=== PATIENT | female | born 1975 | race Caucasian/White ===

== ENCOUNTER 2016-12-19 23:19 | Emergency (ER) | payer OTHER ==
[~2016-12-19] VITALS: Ht 152.4 cm; Wt 77.3 kg
[2016-12-19 23:21] VITALS: Ht 152.4 cm; Wt 77.3 kg
[2016-12-19] MEDS ORDERED: SOD CHLORIDE 0.9% 500 ML IV STA (23:51)
[2016-12-20 00:19] LABS: BASOPHILS % 0.4 % (0.0-2.0); EOSINOPHILS # 0.1 10^3/ul (0.0-0.5); EOSINOPHILS % 1.5 % (0.0-7.0); HEMATOCRIT 37.7 % (37.0-47.0); LYMPHOCYTES # 2.3 10^3/ul (0.8-2.9); LYMPHOCYTES % 24.9 % (15.0-51.0); MEAN CORPUSCULAR HEMOGLOBIN 30.9 pg (29.0-33.0); MEAN CORPUSCULAR HGB CONC 34.5 g/dl (32.0-37.0); MEAN CORPUSCULAR VOLUME 89.5 fl (82.0-101.0); MEAN PLATELET VOLUME 9.8 fl (7.4-10.4); MONOCYTE # 0.6 10^3/ul (0.3-0.9); MONOCYTES % 6.5 % (0.0-11.0); NEUTROPHIL # 6.2 10^3/ul (1.6-7.5); NEUTROPHILS % 66.3 % (39.0-77.0); PLATELET COUNT 333 10^3/UL (140-415); RED BLOOD COUNT 4.21 10^6/ul (4.20-5.40); WHITE BLOOD COUNT 9.4 10^3/ul (4.8-10.8)
[2016-12-20 01:00] LABS: ALANINE AMINOTRANSFERASE 29 IU/L (13-69); ALBUMIN 3.9 g/dl (3.3-4.9); ALBUMIN/GLOBULIN RATIO 0.97; ALKALINE PHOSPHATASE 71 IU/L (42-121); ANION GAP 12 (8-16); ASPARTATE AMINO TRANSFERASE 18 IU/L (15-46); BILIRUBIN,INDIRECT 0.1 mg/dl (0-1.1); BILIRUBIN,TOTAL 0.1 mg/dl (0.2-1.3); BLOOD UREA NITROGEN 14 mg/dl (7-20); CALCIUM 9.3 mg/dl (8.4-10.2); CARBON DIOXIDE 21 mmol/L (21-31); CHLORIDE 109 mmol/L (97-110); CREATININE 0.68 mg/dl (0.44-1.00); GLUCOSE 107 mg/dl (70-220); POTASSIUM 3.6 mmol/L (3.5-5.1); SODIUM 138 mmol/L (135-144); TOTAL PROTEIN 7.9 g/dl (6.1-8.1)
[2016-12-20] MEDS ORDERED: METOPROLOL 5 MG INJ IV ONE (01:00)
[2016-12-20 01:08] LABS: B-TYPE NATRIURETIC PEPTIDE 31 PG/ML (0-125)
[2016-12-20 01:15] LABS: TROPONIN-I < 0.012 ng/ml (0.00-0.12)
[2016-12-20 01:32] VITALS: BP 127/80; PULSE 86; RESP 14
--- NOTE | 2016-12-20 01:37 | ERD ---
ER Documentation Chief Complaint Date/Time DATE: 12/20/16 TIME: 01:36 Chief Complaint BIBA RA 89,palpitations,took atenolol at home,hx SVT HPI 41-year-old female brought in by rescue to palpitations. Patient has history of SVT. She severely doubled dose of atenolol and so the palpitations of since resolved. She denies any fevers or chills. Denies any chest pain. Denies any nausea or vomiting. Denies any other current complaints. ROS All systems reviewed and are negative except as per history of present illness. Allergies Allergies: Coded Allergies: Sulfa (Sulfonamide Antibiotics) (Verified Allergy, Unknown, 11/20/15) iodine (Unverified Allergy, Unknown, 11/20/15) PMhx/Soc History of Surgery: Yes (appendectomy,adenoids removed) Hx Cardiac Disorders: Yes (SVT) Hx Psychiatric Problems: No Hx Miscellaneous Medical Probl: No Hx Alcohol Use: No Hx Substance Use: No Hx Tobacco Use: No Smoking Status: Never smoker Physical Exam Vitals Vital Signs Date Time Temp Pulse Resp B/P Pulse Ox O2 Delivery O2 Flow Rate FiO2 12/20/16 01:32 86 14 127/80 100 Room Air 86 12/20/16 00:52 89 16 119/65 96 Room Air 12/19/16 23:38 104 18 131/83 95 Room Air 12/19/16 23:37 108 18 131/83 98 Room Air 12/19/16 23:21 99.5 132 18 137/73 99 Physical Exam Const: [] Head: Atraumatic Eyes: Normal Conjunctiva ENT: Normal External Ears, Nose and Mouth. Neck: Full range of motion..~ No meningismus. Resp: Clear to auscultation bilaterally Cardio: Regular rate and rhythm, no murmurs Abd: Soft, non tender, non distended. Normal bowel sounds Skin: No petechiae or rashes Back: No midline or flank tenderness Ext: No cyanosis, or edema Neur: Awake and alert Psych: Normal Mood and Affect Result Diagram: 12/20/16 0004 12/20/16 0004 Results 24 hrs Laboratory Tests Test 12/20/16 00:04 White Blood Count 9.410^3/ul Red Blood Count 4.2110^6/ul Hemoglobin 13.0g/dl Hematocrit 37.7% Mean Corpuscular Volume 89.5fl Mean Corpuscular Hemoglobin 30.9pg Mean Corpuscular Hemoglobin Concent 34.5g/dl Red Cell Distribution Width 13.0% Platelet Count 86873^3/UL Mean Platelet Volume 9.8fl Neutrophils % 66.3% Lymphocytes % 24.9% Monocytes % 6.5% Eosinophils % 1.5% Basophils % 0.4% Nucleated Red Blood Cells % 0.0/100WBC Neutrophils # 6.210^3/ul Lymphocytes # 2.310^3/ul Monocytes # 0.610^3/ul Eosinophils # 0.110^3/ul Basophils # 0.010^3/ul Nucleated Red Blood Cells # 0.010^3/ul Sodium Level 138mmol/L Potassium Level 3.6mmol/L Chloride Level 109mmol/L Carbon Dioxide Level 21mmol/L Anion Gap 12 Blood Urea Nitrogen 14mg/dl Creatinine 0.68mg/dl Glucose Level 107mg/dl Calcium Level 9.3mg/dl Total Bilirubin 0.1mg/dl Direct Bilirubin 0.00mg/dl Indirect Bilirubin 0.1mg/dl Aspartate Amino Transf (AST/SGOT) 18IU/L Alanine Aminotransferase (ALT/SGPT) 29IU/L Alkaline Phosphatase 71IU/L Troponin I < 0.012ng/ml B-Type Natriuretic Peptide 31PG/ML Total Protein 7.9g/dl Albumin 3.9g/dl Globulin 4.00g/dl Albumin/Globulin Ratio 0.97 Current Medications Medications (Trade) Dose Ordered Sig/Dontae Route PRN Reason Start Time Stop Time Status Last Admin Dose Admin Sodium Chloride (NS) 500 ml @ 500 mls/hr Q1H STAT IV 12/19/16 23:51 12/20/16 00:50 DC 12/20/16 00:17 Metoprolol Tartrate (Lopressor) 5 mg ONCE ONCE IV 12/20/16 01:00 12/20/16 01:01 DC Procedures/[facility] EKG: Rate/Rhythm: [Normal Sinus Rhythm] QRS, ST, T-waves: [No changes consistent w/ acute ischemia] Impression: [No evidence of ischemia or arrhythmia] Chest X-ray 1V Interpreted by me: Soft Tissue: No acute abnormalities Bones: No acute abnormalities Mediastinum/Cardiac Silhouette/Lungs: [No acute abnormalities] Patient's thoracic symptoms have stabilized while in the department and are stable for outpatient follow up. Exam and work up not consistent w/ ischemia, arrhythmia, PE or dissection. Departure Diagnosis: Primary Impression: Palpitations Condition: Stable Patient Instructions: DEVYN LORENZANA Dec 20, 2016 01:37
[2016-12-20 01:38] LABS: ADD UMIC YES; UR ASCORBIC ACID NEGATIVE (NEGATIVE); UR BACTERIA FEW /HPF (NONE SEEN); UR BILIRUBIN (Dip) NEGATIVE (NEGATIVE); UR BLOOD (Dip) 1+ mg/dL (NEGATIVE); UR CLARITY CLEAR (CLEAR); UR COLOR STRAW (YELLOW); UR GLUCOSE (Dip) NEGATIVE (NEGATIVE); UR KETONES (Dip) NEGATIVE (NEGATIVE); UR LEUKOCYTE ESTERASE (Dip) NEGATIVE Leu/ul (NEGATIVE); UR NITRITE (Dip) NEGATIVE (NEGATIVE); UR RBC 1 /HPF (0-5); UR SPECIFIC GRAVITY (Dip) 1.003 (1.003-1.030); UR SQUAMOUS EPITHELIAL CELL FEW /HPF (FEW); UR TOTAL PROTEIN (Dip) NEGATIVE (NEGATIVE); UR UROBILINOGEN (Dip) NEGATIVE (NEGATIVE)
--- NOTE | 2016-12-20 03:49 | RADRPT ---
PROCEDURE: CHEST - 1 VIEW CLINICAL INDICATION: 41-year-old female with chest pain. TECHNIQUE: A single frontal AP semi-erect portable view of the chest was performed. The images we re reviewed on a PACS workstation. COMPARISON: Chest x-ray November 20, 2015. FINDINGS: The cardiomediastinal silhouette has a normal appearance. There is no evidence for an infiltrate. There is no evidence for congestive heart failure. There is no evidence for pneumothorax. The osseou s structures are intact. IMPRESSION: No evidence for active cardiopulmonary disease. .Jemal Palma MD, Date Time Electronically viewed and signed by .Jemal Palma MD, on 12/20/2016 03:49 .M/
== END 2016-12-20 01:41 | disposition home or self-care (01) ==
LOC: E/R 23:19
DX: R00.2 Palpitations (principal); R40.2142 Coma scale, eyes open, spontaneous, at arrival to emergency department; R40.2252 Coma scale, best verbal response, oriented, at arrival to emergency department; R40.2362 Coma scale, best motor response, obeys commands, at arrival to emergency department; R06.02 Shortness of breath
CPT/HCPCS: 36415; 71010; 80053; 81001; 83880; 84484; 85025; 93005; 96374; 99285; J7040

== ENCOUNTER 2018-06-07 10:06 | Observation (INO) | payer OTHER ==
[~2018-06-07] VITALS: Ht 152.4 cm; Wt 78.8 kg
[2018-06-07] MEDS ORDERED: ASPIRIN 325 MG TAB PO STA (10:50)
[2018-06-07] MEDS ORDERED: ONDANSETRON 4 MG INJ IV STA (10:50)
[2018-06-07] MEDS ORDERED: morphine 2 MG INJ IV STA (10:50)
[2018-06-07] MEDS ORDERED: SOD CHLORIDE 0.9% 1,000 ML IV STA (10:50)
[2018-06-07] MEDS ORDERED: ATEN-51 PO (11:06)
[2018-06-07] MEDS ORDERED: ACETAMINOPHEN 500 MG TAB PO STA (11:15)
[2018-06-07] MEDS ORDERED: SOD CHLORIDE 0.9% 100 ML ONE (12:21)
[2018-06-07] MEDS ORDERED: IOHEXOL 100 ML ONE (12:21)
[2018-06-07] MEDS ORDERED: ACETAMINOPHEN 325 MG TAB PO PRN (14:00)
[2018-06-07] MEDS ORDERED: ONDANSETRON 4 MG INJ IV PRN ×2 (14:00→16:00)
[2018-06-07 15:49] VITALS: BP 129/82; PULSE 75; RESP 18
[2018-06-07 16:00] VITALS: PULSE 67
[2018-06-07] MEDS ORDERED: NITROGLYCERIN (SL) 0.4 MG TAB SL PRN (16:00)
[2018-06-07] MEDS ORDERED: DOCUSATE SODIUM 100 MG CAP PO PRN (16:00)
[2018-06-07] MEDS ORDERED: morphine 2 MG INJ IV PRN (16:00)
[2018-06-07] MEDS ORDERED: ZOLPIDEM 5 MG TAB PO PRN (16:00)
[2018-06-07] MEDS ORDERED: NACL 0.9% 3 ML SYG IV SCH (16:00)
[2018-06-07] MEDS ORDERED: HYDROCODONE/APAP (5/325) TAB PO PRN (16:00)
--- NOTE | 2018-06-07 17:12 | HP ---
Date/Time of Note Date/Time of Note DATE: 06/07/18 TIME: 17:05 Assessment/Plan VTE Prophylaxis Pharmacological prophylaxis: NA/contraindicated Pharm contraindication: low risk/ambulating Lines/Catheters IV Catheter Type (from Nrs): [facility] Assessment/Plan Hospital Course 1. Atypical chest pain and back pain Patient's only risk factor is a positive family history Symptoms are atypical and likely secondary to muscular pain in the chest and back, possible mild fibromyalgia Of the patient's pain began 6 months ago after starting statins but has stopped taking statins 4 months ago and hence pain should have resolved by now Patient had a stress test 4 years ago that was reportedly negative Patient states that SVTs do cause palpitations at times but that this current pain is different Cardiology consultation obtained, follow-up and 2D echo Rule out ACS with troponins Check A1c and lipid panel 2. SVT Patient was diagnosed with this for years ago and has been taking atenolol DC atenolol and changed to Coreg as patient reports episodes of bradycardia with atenolol Cardiology consultation obtained 3. Obesity Patient is currently on a diet for the past several months and has been losing weight Prophylaxis: Ambulation Result Diagram: 06/07/18 1059 06/07/18 1340 Results 24hrs Laboratory Tests Test 06/07/18 10:58 06/07/18 10:59 06/07/18 13:40 POC Beta HCG, Qualitative NEGATIVE White Blood Count 6.8 # Red Blood Count 4.48 Hemoglobin 13.1 Hematocrit 40.2 Mean Corpuscular Volume 89.7 Mean Corpuscular Hemoglobin 29.2 Mean Corpuscular 32.6 Hemoglobin Concent Red Cell Distribution Width 12.8 Platelet Count 230 # Mean Platelet Volume 11.3 H Immature Granulocytes % 0.400 Neutrophils % 69.2 Lymphocytes % 22.9 Monocytes % 5.9 Eosinophils % 0.9 Basophils % 0.7 Nucleated Red Blood Cells % 0.0 Immature Granulocytes # 0.030 Neutrophils # 4.7 Lymphocytes # 1.6 Monocytes # 0.4 Eosinophils # 0.1 Basophils # 0.1 Nucleated Red Blood Cells # 0.0 Urine Color YELLOW Urine Clarity SLIGHTLY CLOUDY A Urine pH 5.0 Urine Specific [place] 1.006 Urine Ketones NEGATIVE Urine Nitrite NEGATIVE Urine Bilirubin NEGATIVE Urine Urobilinogen NEGATIVE Urine Leukocyte Esterase 1+ H Urine Microscopic RBC 2 Urine Microscopic WBC 4 Urine Squamous FEW Epithelial Cells Urine Bacteria FEW A Urine Mucus FEW A Urine Hemoglobin 1+ H Urine Glucose NEGATIVE Urine Total Protein NEGATIVE Prothrombin Time 12.2 Prothrombin Time Ratio 1.0 INR International 0.89 Normalized Ratio Activated Partial Thromboplast Pending Time Sodium Level 142 Potassium Level 4.6 Chloride Level 107 Carbon Dioxide Level 22 Anion Gap 13 Blood Urea Nitrogen 10 Creatinine 0.57 Est Glomerular Filtrat > 60 Rate mL/min Glucose Level 105 Calcium Level 9.8 Total Bilirubin 0.5 Direct Bilirubin 0.00 Indirect Bilirubin 0.5 Aspartate Amino 22 Transf (AST/SGOT) Alanine 18 Aminotransferase (ALT/SGPT) Alkaline Phosphatase 64 Creatine Kinase 58 Creatine Kinase Index 0.4 Creatinine Kinase MB (Mass) < 0.22 Troponin I < 0.012 B-Type Natriuretic Peptide 36 Total Protein 8.1 Albumin 4.7 Globulin 3.40 H Albumin/Globulin Ratio 1.38 HPI/ROS Admit Date/Time Admit Date/Time Jun 07, 2018 at 13:48 Hx of Present Illness Patient is a 42-year-old female with a reported history of SVTs on atenolol, myalgias secondary to statin which was initiated 6 months ago. Patient presents with chest pain as well as back pain with the past 2 days. Patient began having diffuse body pains 6 months ago after starting statins and discontinued statins 4 months ago. Since then majority of her muscle pain has resolved but she does have persistent chest and back pain which was exacerbated over the past 2 days. Patient did have a stress test in outside hospital 4 years ago which was apparently negative but was diagnosed with SVT at that time and placed on atenolol. Patient does state that at times while taking atenolol she does become bradycardic. Patient denies any depression, anxiety or psychological distress. Patient denies any shortness of breath,, patient does report nausea over the past 2 days but denies any emesis, patient has chronic constipation and has no new changes in her bowel habits. Of note patient has an on a 1500- calorie diet for the past several months and has lost 10 pounds. Patient has no other complaints at this time. ROS Constitutional: no complaints, improved Eyes: no complaints ENT: no complaints Respiratory: no complaints Cardiovascular: chest pain Gastrointestinal: nausea Genitourinary: no complaints Musculoskeletal: back pain Skin: no complaints Neurologic: no complaints Endocrine: no complaints Lymphatic: no complaints Psychological: no complaints, nl mood/affect Immunologic: no complaints PMH/Family/Social Past Medical History SVT Medications Current Medications Ondansetron HCl (Zofran Inj) 4 mg ER BRIDGE PRN IV NAUSEA/VOMITING; Start 06/07/18 at 14:00; Stop 06/08/18 at 13:59 Acetaminophen (Tylenol Tab) 650 mg ER BRIDGE PRN PO .MILD PAIN 1-3 OR TEMP; Start 06/07/18 at 14:00; Stop 06/08/18 at 13:59 Aspirin (Aspirin) 81 mg DAILY PO ; Start 06/09/18 at 09:00 Nitroglycerin (Nitroglycerin (Sl Tab) 0.4 Mg) 1 tab Q5M PRN SL CHEST PAIN; Start 06/07/18 at 16:00 IV Flush (NS 3 ml) 3 ml PER PROTOCOL IV ; Start 06/07/18 at 16:00 Ondansetron HCl (Zofran Inj) 4 mg Q6H PRN IV NAUSEA/VOMITING; Start 06/07/18 at 16:00 Acetaminophen (Tylenol Tab) 650 mg Q6H PRN PO .PAIN 1-3 OR TEMP; Start 06/07/18 at 16:00 Acetaminophen/ Hydrocodone Bitart ([address] ([address])) 1 tab Q6H PRN PO .MOD PAIN 4- 6; Start 06/07/18 at 16:00 Morphine Sulfate (morphine) 2 mg Q4H PRN IV .SEVERE PAIN 7-10; Start 06/07/18 at 16:00 Docusate Sodium (Colace) 100 mg Q12H PRN PO .CONSTIPATION; Start 06/07/18 at 16:00 Zolpidem Tartrate (Ambien) 5 mg QHS PRN PO .INSOMNIA; Start 06/07/18 at 16:00 Enoxaparin Sodium (Lovenox) 40 mg DAILY SC ; Start 06/08/18 at 09:00 Atenolol (Tenormin) 25 mg DAILY PO ; Start 06/08/18 at 09:00 Coded Allergies: Sulfa (Sulfonamide Antibiotics) (Verified Allergy, Unknown, 06/07/18) iodine (Unverified Allergy, Unknown, 06/07/18) Past Surgical History Past Surgical Hx: no surgical history Family History Significant Family History: heart disease (Father with first [place] at 38 and of heart disease in his early 50s) Social History Alcohol Use: rarely Smoking Status: Never smoker Drug Use: none Exam/Review of Systems Vital Signs Vitals Vital Signs Date Temp Pulse Resp B/P (MAP) Pulse Ox O2 O2 Flow FiO2 Time Delivery Rate 06/07/18 67 16:00 06/07/18 98.2 18 129/82 99 Room Air 15:49 (98) Exam Constitutional: alert, oriented Respiratory: clear to auscultation Cardiovascular: regular rate and rhythm Gastrointestinal: soft; No distended Musculoskeletal: nl extremities to inspection, other (Tenderness to palpation in the chest and back) KEKE MASON Jun 07, 2018 17:12
[2018-06-07 19:44] VITALS: BP 102/64; PULSE 81; RESP 18
[2018-06-07 20:04] VITALS: PULSE 71
[2018-06-07 20:30] VITALS: BP 128/78; PULSE 79; PULSE 86; RESP 16
[2018-06-07 22:19] VITALS: Ht 152.4 cm; Wt 78.8 kg
[2018-06-08] VITALS (10 sets, daily range): BP systolic 100–117; BP diastolic 56–64; PULSE 70–102; RESP 14–15
[2018-06-08] MEDS: ACETAMINOPHEN 325 MG TAB PO PRN ×2 (06:53→16:06)
--- NOTE | 2018-06-08 07:11 | ERD ---
ER Documentation Chief Complaint Chief Complaint chest pain x3 days described as "pressure and discomfort" HPI This is a very pleasant 42-year-old female with a past medical history of hypercholesteremia however stopped taking statins as this resolved and has a remote history of SVT for years ago on atenolol. The patient presents to the emergency department she states she is been having intermittent chest pain for roughly 6 months but this progressively worsened 3 days prior to arrival. She described it as a pressure-like sensation. She did state that radiated to her back. She denied associated symptoms of nausea vomiting or diaphoresis. The patient has a history of tobacco use but quit several years ago. She states she has a strong family history of coronary artery disease as her father had a myocardial infarction at 38 years of age. She has no associated symptoms of shortness of breath. She said no fevers no shaking or chills. She states that the chest pressure has been intermittent. Will last for roughly 10-20 minutes and then resolved. There is no alleviating or exacerbating factors to the chest pressure. ROS All systems reviewed and are negative except as per history of present illness. Medications Home Meds Reported Medications Atenolol* (Atenolol*) 25 Mg Tablet, 25 MG PO DAILY, #30 TAB 06/07/18 Allergies Allergies: Coded Allergies: Sulfa (Sulfonamide Antibiotics) (Verified Allergy, Unknown, 06/07/18) iodine (Unverified Allergy, Unknown, 06/07/18) PMhx/Soc History of Surgery: Yes (appendectomy) Anesthesia Reaction: No Hx Neurological Disorder: No Hx Respiratory Disorders: No Hx Cardiac Disorders: Yes (svt) Hx Psychiatric Problems: No Hx Miscellaneous Medical Probl: No Hx Alcohol Use: No Hx Substance Use: No Hx Tobacco Use: No Smoking Status: Never smoker Physical Exam Vitals Vital Signs Date Temp Pulse Resp B/P (MAP) Pulse Ox O2 O2 Flow FiO2 Time Delivery Rate 06/07/18 97.8 81 20 150/73 100 10:07 (98) Physical Exam Constitutional:Well-developed. Well-nourished. HEENT:Normocephalic. Atraumatic.Pupils were equal round reactive to light. Moist mucous membranes.No tonsillar exudates. Neck: No nuchal rigidity. No lymphadenopathy. No posterior cervical spine ten derness or step-offs. Respiratory: Not using accessory muscles of respiration.Lungs were clear to au scultation bilaterally. No rhonchi. No rales. No wheezing. Cardiovascular: Regular rate regular rhythm.No murmurs. No rubs were appreciated.S1, S2 normal. Distal pulses are palpable 2+ bilaterally. GI: Abdomen was soft. Nontender. Non Distended. No pulsatile abdominal masses or bruits. No rebound. No guarding. Bowel sounds were present and normal. Muscle skeletal: Full range of motion of both the upper and lower extremities bilaterally.Normal muscle tone.No assymetrical calf tenderness or swelling. Skin: No petechia, no purpura. No lesions on the palms or the soles of the feet. No maculopapular rash. NEURO: Patient was alert, awake, orientated x3.No facial droop. Gait observed and normal with no ataxia.Speech had regular rate and rhythm. No focal neurological deficits. Result Diagram: 06/08/18 0506 06/08/18 0506 Results 24 hrs Laboratory Tests Test 06/07/18 10:58 06/07/18 10:59 06/07/18 13:40 POC Beta HCG, Qualitative NEGATIVE White Blood Count 6.8 10^3/ul Red Blood Count 4.48 10^6/ul Hemoglobin 13.1 g/dl Hematocrit 40.2 % Mean Corpuscular Volume 89.7 fl Mean Corpuscular Hemoglobin 29.2 pg Mean Corpuscular 32.6 g/dl Hemoglobin Concent Red Cell Distribution Width 12.8 % Platelet Count 230 10^3/UL Mean Platelet Volume 11.3 fl Immature Granulocytes % 0.400 % Neutrophils % 69.2 % Lymphocytes % 22.9 % Monocytes % 5.9 % Eosinophils % 0.9 % Basophils % 0.7 % Nucleated Red Blood Cells % 0.0 /100WBC Immature Granulocytes # 0.030 10^3/ul Neutrophils # 4.7 10^3/ul Lymphocytes # 1.6 10^3/ul Monocytes # 0.4 10^3/ul Eosinophils # 0.1 10^3/ul Basophils # 0.1 10^3/ul Nucleated Red Blood Cells # 0.0 10^3/ul Urine Color YELLOW Urine Clarity SLIGHTLY CLOUDY Urine pH 5.0 Urine Specific [place] 1.006 Urine Ketones NEGATIVE mg/dL Urine Nitrite NEGATIVE mg/dL Urine Bilirubin NEGATIVE mg/dL Urine Urobilinogen NEGATIVE mg/dL Urine Leukocyte Esterase 1+ Jeanine/ul Urine Microscopic RBC 2 /HPF Urine Microscopic WBC 4 /HPF Urine Squamous Epithelial Cells FEW /HPF Urine Bacteria FEW /HPF Urine Mucus FEW /HPF Urine Hemoglobin 1+ mg/dL Urine Glucose NEGATIVE mg/dL Urine Total Protein NEGATIVE mg/dl Prothrombin Time 12.2 Sec Prothrombin Time Ratio 1.0 INR International 0.89 Normalized Ratio Activated Partial Thromboplast 28.9 Sec Time Sodium Level 142 mmol/L Potassium Level 4.6 mmol/L Chloride Level 107 mmol/L Carbon Dioxide Level 22 mmol/L Anion Gap 13 Blood Urea Nitrogen 10 mg/dl Creatinine 0.57 mg/dl Est Glomerular Filtrat > 60 mL/min Rate mL/min Glucose Level 105 mg/dl Calcium Level 9.8 mg/dl Total Bilirubin 0.5 mg/dl Direct Bilirubin 0.00 mg/dl Indirect Bilirubin 0.5 mg/dl Aspartate Amino 22 IU/L Transf (AST/SGOT) Alanine 18 IU/L Aminotransferase (ALT/SGPT) Alkaline Phosphatase 64 IU/L Creatine Kinase 58 IU/L Creatine Kinase Index 0.4 Creatinine Kinase MB (Mass) < 0.22 ng/ml Troponin I < 0.012 ng/ml B-Type Natriuretic Peptide 36 PG/ML Total Protein 8.1 g/dl Albumin 4.7 g/dl Globulin 3.40 g/dl Albumin/Globulin Ratio 1.38 Current Medications Medications Dose Sig/Dontae Start Time Status Last (Trade) Ordered Route PRN Stop Time Admin Dose Reason Admin Sodium 1,000 ml @ Q1H STAT 06/07/18 DC Chloride 1,000 mls/hr IV 10:50 06/07/18 11:49 Aspirin 325 mg ONCE STAT 06/07/18 DC 06/07/18 (Aspirin) PO 10:50 11:17 06/07/18 10:51 Morphine 2 mg ONCE STAT 06/07/18 DC Sulfate IV 10:50 (morphine) 06/07/18 10:51 Ondansetron 4 mg ONCE STAT 06/07/18 DC HCl (Zofran IV 10:50 Inj) 06/07/18 10:51 1,000 mg ONCE STAT 06/07/18 DC 06/07/18 Acetaminophen PO 11:15 11:31 (Tylenol 06/07/18 11:17 Tab) Sodium 100 ml @ ud [facility] 06/07/18 DC Chloride ONCE .ROUTE 12:21 06/07/18 12:22 Iohexol 100 ml @ [facility] 06/07/18 DC ONCE .ROUTE 12:21 06/07/18 12:22 Procedures/MDM The patient presented to the emergency department with chest pain. My clinical evaluation and workup was to distinguish minor causes of chest pain from acute life threatening conditions such as myocardial infarction, pulmonary embolism, aortic dissection, esophageal rupture, cardiac tamponade. The patient was placed on a personnel monitor and continuous pulse oximetry. IV access established by nursing staff. The patient received 325 mg of aspirin. The patient had a chest pain that did radiate to the back of I did feel is necessary to obtain a CT scan of the patient's chest to rule out for any aortic dissection. However the patient has a severe anaphylactic allergy to iodine and therefore no IV contrast was given. CT scan of the chest without contrast did not show any signs of an aortic aneurysm or other severe life-threatening etiology. 12 Lead EKG tracing ordered and reviewed by myself showed: Normal sinus rhythm of 73 bpm and no arrhythmia. MN interval normal. QRS duration normal. No ST segment elevation No ST segment depression. No changes consistent with acute ischemia. Given the patient's strong family history of cardiac risk factors I did feel is necessary for the patient to be admitted for serial twelve-lead EKG tracings and cardiac set of enzymes. The patient will be admitted to the hospitalist for observation to the telemetry service in serious condition. The patient was not given nitroglycerin as her chest pain had resolved after aspirin. Departure Diagnosis: Primary Impression: Chest pain Chest pain type: unspecified Qualified Codes: R07.9 - Chest pain, unspecified Condition: Serious REGGIE GREENE MD Jun 08, 2018 07:11
[2018-06-08] MEDS ORDERED: ATENOLOL 25 MG TAB PO SCH (09:00)
[2018-06-08] MEDS ORDERED: ENOXAPARIN 40 MG/0.4 ML SYG SC SCH (09:00)
[2018-06-08] MEDS ORDERED: ASPIRIN 81 MG TAB ONE (09:16)
--- NOTE | 2018-06-08 12:13 | CONS ---
Assessment/Plan Assessment/Plan Hospital Course (Demo Recall) 1. Chest pain: Rule out ACS 2. History of SVT currently stable 3. History of fibromyalgia 4. Obesity Recommendations: Continue with beta-hany. Echocardiogram is pending We will schedule for Sola S are significant obstructive coronary artery disease Thank you for his referral. We will continue to follow along with you SOMMER LYNN MD [facility] Consultation Date/Type/Reason Admit Date/Time Jun 07, 2018 at 13:48 Date of Consultation: Jun 08, 2018 Type of Consult Cardiology Reason for Consultation chest pain Requesting Provider: KEKE CONTRERAS Date/Time of Note DATE: 06/08/18 TIME: 12:08 Hx of Present Illness Interventional cardiology consultation note Chief complaint: chest pain Reason for consult: chest pain History of present illness: Thank you for this referral. History was obtained from the patient discussion with her family and discussion with the physicians include Dr. Contreras This is a pleasant 42-year-old female with history of SVT on atenolol at home, who came to emergency room with increasing and worsening chest pain. Patient has had chest pain anteriorly in the left-sided over the past 6 months. It is not related to exertion for the last 5-10 minutes at a time. It is sharp. She has noted more dyspnea on exertion lately. She has been admitted and ruled out for myocardial infarction. Allergies: Sulfa drugs and iodine Medications were reviewed as per medical reconciliation sheet Family history: Father with NM at age 38 Social history: Does not smoke or drink Past medical history: SVT, possible fibromyalgia Review of system: Patient denies all others except for above-mentioned Past Medical History Home Meds Reported Medications Atenolol* (Atenolol*) 25 Mg Tablet, 25 MG PO DAILY, #30 TAB 06/07/18 Medications Current Medications Aspirin (Aspirin) 81 mg DAILY PO ; Start 06/09/18 at 09:00 Nitroglycerin (Nitroglycerin (Sl Tab) 0.4 Mg) 1 tab Q5M PRN SL CHEST PAIN; Start 06/07/18 at 16:00 IV Flush (NS 3 ml) 3 ml PER PROTOCOL IV ; Start 06/07/18 at 16:00 Ondansetron HCl (Zofran Inj) 4 mg Q6H PRN IV NAUSEA/VOMITING; Start 06/07/18 at 16:00 Acetaminophen (Tylenol Tab) 650 mg Q6H PRN PO .PAIN 1-3 OR TEMP Last administered on 06/08/18at 06:53; Admin Dose 650 MG; Start 06/07/18 at 16:00 Acetaminophen/ Hydrocodone Bitart ([place] (5/325)) 1 tab Q6H PRN PO .MOD PAIN 4- 6; Start 06/07/18 at 16:00 Morphine Sulfate (morphine) 2 mg Q4H PRN IV .SEVERE PAIN 7-10; Start 06/07/18 at 16:00 Docusate Sodium (Colace) 100 mg Q12H PRN PO .CONSTIPATION; Start 06/07/18 at 16:00 Zolpidem Tartrate (Ambien) 5 mg QHS PRN PO .INSOMNIA; Start 06/07/18 at 16:00 Enoxaparin Sodium (Lovenox) 40 mg DAILY SC Last administered on 06/08/18at 09:13; Admin Dose 40 MG; Start 06/08/18 at 09:00 Carvedilol (Coreg) 3.125 mg BID PO Last administered on 06/08/18at 09:03; Admin Dose 3.125 MG; Start 06/07/18 at 21:00 Allergies: Coded Allergies: Sulfa (Sulfonamide Antibiotics) (Verified Allergy, Unknown, 06/07/18) iodine (Unverified Allergy, Unknown, 06/07/18) Past Surgical History Past Surgical Hx: no surgical history Social History Alcohol Use: rarely Smoking Status: Never smoker Drug Use: none Exam/Review of Systems Vital Signs Vitals Vital Signs Date Temp Pulse Resp B/P (MAP) Pulse Ox O2 O2 Flow FiO2 Time Delivery Rate 06/08/18 75 12:02 06/08/18 98.5 14 103/58 93 Room Air 11:34 (73) Intake and Output 06/07/18 06/07/18 06/08/18 1515:00 23:00 07:00 IntakeIntake Total 360 ml 480 ml BalanceBalance 360 ml 480 ml Exam Exam General: no acute distress HEENT: NC/AT. pupils are equal. round. NECK: NO JVD. no stridor. CV: RRR. systolic murmur; no gallop or rubs. PULM: no wheezing or rhonchi. GI: SOFT, NT, ND, no rebound or guarding Extremity: trace B/L LE edema. no clubbing. neuro: awake and alert, OX3. Psych: calm and pleasant rectal: deferred EKG shows normal sinus rhythm with no evidence of ischemia Chest CT 1. No active pulmonary process. 2. Atherosclerotic disease is present. Labs Result Diagram: 06/08/18 0506 06/08/18 0506 Results 24hrs Laboratory Tests Test 06/07/18 13:40 06/08/18 05:06 Prothrombin Time 12.2 Prothrombin Time Ratio 1.0 INR International Normalized Ratio 0.89 Activated Partial Thromboplast Time 28.9 Sodium Level 142 142 Potassium Level 4.6 4.4 Chloride Level 107 110 Carbon Dioxide Level 22 22 Anion Gap 13 10 Blood Urea Nitrogen 10 10 Creatinine 0.57 0.64 Est Glomerular Filtrat Rate mL/min > 60 > 60 Glucose Level 105 95 Calcium Level 9.8 9.7 Total Bilirubin 0.5 Direct Bilirubin 0.00 Indirect Bilirubin 0.5 Aspartate Amino Transf (AST/SGOT) 22 Alanine Aminotransferase (ALT/SGPT) 18 Alkaline Phosphatase 64 Creatine Kinase 58 40 Creatine Kinase Index 0.4 0.6 Creatinine Kinase MB (Mass) < 0.22 < 0.22 Troponin I < 0.012 < 0.012 B-Type Natriuretic Peptide 36 Total Protein 8.1 Albumin 4.7 Globulin 3.40 H Albumin/Globulin Ratio 1.38 White Blood Count 7.6 Red Blood Count 4.41 Hemoglobin 12.8 Hematocrit 39.7 Mean Corpuscular Volume 90.0 Mean Corpuscular Hemoglobin 29.0 Mean Corpuscular Hemoglobin Concent 32.2 Red Cell Distribution Width 12.9 Platelet Count 385 # Mean Platelet Volume 10.2 Immature Granulocytes % 0.400 Neutrophils % 58.2 Lymphocytes % 32.0 Monocytes % 7.4 Eosinophils % 1.5 Basophils % 0.5 Nucleated Red Blood Cells % 0.0 Immature Granulocytes # 0.030 Neutrophils # 4.4 Lymphocytes # 2.4 Monocytes # 0.6 Eosinophils # 0.1 Basophils # 0.0 Nucleated Red Blood Cells # 0.0 Hemoglobin A1c 5.3 Phosphorus Level 4.7 Magnesium Level 2.0 Triglycerides Level 147 Cholesterol Level 227 H LDL Cholesterol, Calculated 157 HDL Cholesterol 41 Cholesterol/HDL Ratio 5.5 Medications Medications Current Medications Aspirin (Aspirin) 81 mg DAILY PO ; Start 06/09/18 at 09:00 Nitroglycerin (Nitroglycerin (Sl Tab) 0.4 Mg) 1 tab Q5M PRN SL CHEST PAIN; Start 06/07/18 at 16:00 IV Flush (NS 3 ml) 3 ml PER PROTOCOL IV ; Start 06/07/18 at 16:00 Ondansetron HCl (Zofran Inj) 4 mg Q6H PRN IV NAUSEA/VOMITING; Start 06/07/18 at 16:00 Acetaminophen (Tylenol Tab) 650 mg Q6H PRN PO .PAIN 1-3 OR TEMP Last administered on 06/08/18at 06:53; Admin Dose 650 MG; Start 06/07/18 at 16:00 Acetaminophen/ Hydrocodone Bitart ([place] (5/325)) 1 tab Q6H PRN PO .MOD PAIN 4- 6; Start 06/07/18 at 16:00 Morphine Sulfate (morphine) 2 mg Q4H PRN IV .SEVERE PAIN 7-10; Start 06/07/18 at 16:00 Docusate Sodium (Colace) 100 mg Q12H PRN PO .CONSTIPATION; Start 06/07/18 at 16:00 Zolpidem Tartrate (Ambien) 5 mg QHS PRN PO .INSOMNIA; Start 06/07/18 at 16:00 Enoxaparin Sodium (Lovenox) 40 mg DAILY SC Last administered on 06/08/18at 09:13; Admin Dose 40 MG; Start 06/08/18 at 09:00 Carvedilol (Coreg) 3.125 mg BID PO Last administered on 06/08/18at 09:03; Admin Dose 3.125 MG; Start 06/07/18 at 21:00 SOMMER LYNN MD Jun 08, 2018 12:13
--- NOTE | 2018-06-08 13:43 | PN ---
Date/Time of Note Date/Time of Note DATE: 06/08/18 TIME: 13:41 Assessment/Plan VTE Prophylaxis Risk score (from Nsg)>0 risk: 2 Pharmacological prophylaxis: NA/contraindicated Pharm contraindication: low risk/ambulating Lines/Catheters IV Catheter Type (from Nrsg): Saline Lock Assessment/Plan Hospital Course 1. Atypical chest pain and back pain Patient's only risk factor is a positive family history Symptoms are atypical and likely secondary to muscular pain in the chest and back, possible mild fibromyalgia Of the patient's pain began 6 months ago after starting statins but has stopped taking statins 4 months ago and hence pain should have resolved by now Patient had a stress test 4 years ago that was reportedly negative Patient states that SVTs do cause palpitations at times but that this current pain is different Cardiology consultation obtained, follow-up with 2D echo and stress test Troponins are negative A1c and lipids are within normal limits 2. SVT Patient was diagnosed with this for years ago and has been taking atenolol DC atenolol and changed to Coreg as patient reports episodes of bradycardia with atenolol Cardiology consultation appreciated 3. Obesity Patient is currently on a diet for the past several months and has been losing weight Prophylaxis: Ambulation DC planning: Follow-up on echo and stress test Result Diagram: 06/08/18 0506 06/08/18 0506 Results 24hrs Laboratory Tests Test 06/08/18 05:06 White Blood Count 7.6 Red Blood Count 4.41 Hemoglobin 12.8 Hematocrit 39.7 Mean Corpuscular Volume 90.0 Mean Corpuscular Hemoglobin 29.0 Mean Corpuscular Hemoglobin Concent 32.2 Red Cell Distribution Width 12.9 Platelet Count 385 # Mean Platelet Volume 10.2 Immature Granulocytes % 0.400 Neutrophils % 58.2 Lymphocytes % 32.0 Monocytes % 7.4 Eosinophils % 1.5 Basophils % 0.5 Nucleated Red Blood Cells % 0.0 Immature Granulocytes # 0.030 Neutrophils # 4.4 Lymphocytes # 2.4 Monocytes # 0.6 Eosinophils # 0.1 Basophils # 0.0 Nucleated Red Blood Cells # 0.0 Sodium Level 142 Potassium Level 4.4 Chloride Level 110 Carbon Dioxide Level 22 Anion Gap 10 Blood Urea Nitrogen 10 Creatinine 0.64 Est Glomerular Filtrat Rate mL/min > 60 Glucose Level 95 Hemoglobin A1c 5.3 Calcium Level 9.7 Phosphorus Level 4.7 Magnesium Level 2.0 Creatine Kinase 40 Creatine Kinase Index 0.6 Creatinine Kinase MB (Mass) < 0.22 Troponin I < 0.012 Triglycerides Level 147 Cholesterol Level 227 H LDL Cholesterol, Calculated 157 HDL Cholesterol 41 Cholesterol/HDL Ratio 5.5 Subjective 24 Hr Interval Summary Cardiovascular: chest pain Exam/Review of Systems Exam Vitals Vital Signs Date Temp Pulse Resp B/P (MAP) Pulse Ox O2 O2 Flow FiO2 Time Delivery Rate 06/08/18 75 12:02 06/08/18 98.5 14 103/58 93 Room Air 11:34 (73) Intake and Output 06/07/18 06/07/18 06/08/18 1515:00 23:00 07:00 IntakeIntake Total 360 ml 480 ml BalanceBalance 360 ml 480 ml Constitutional: alert, oriented Respiratory: clear to auscultation Cardiovascular: regular rate and rhythm Gastrointestinal: soft; No distended Musculoskeletal: nl extremities to inspection Results Results 24hrs Laboratory Tests Test 06/08/18 05:06 White Blood Count 7.6 Red Blood Count 4.41 Hemoglobin 12.8 Hematocrit 39.7 Mean Corpuscular Volume 90.0 Mean Corpuscular Hemoglobin 29.0 Mean Corpuscular Hemoglobin Concent 32.2 Red Cell Distribution Width 12.9 Platelet Count 385 # Mean Platelet Volume 10.2 Immature Granulocytes % 0.400 Neutrophils % 58.2 Lymphocytes % 32.0 Monocytes % 7.4 Eosinophils % 1.5 Basophils % 0.5 Nucleated Red Blood Cells % 0.0 Immature Granulocytes # 0.030 Neutrophils # 4.4 Lymphocytes # 2.4 Monocytes # 0.6 Eosinophils # 0.1 Basophils # 0.0 Nucleated Red Blood Cells # 0.0 Sodium Level 142 Potassium Level 4.4 Chloride Level 110 Carbon Dioxide Level 22 Anion Gap 10 Blood Urea Nitrogen 10 Creatinine 0.64 Est Glomerular Filtrat Rate mL/min > 60 Glucose Level 95 Hemoglobin A1c 5.3 Calcium Level 9.7 Phosphorus Level 4.7 Magnesium Level 2.0 Creatine Kinase 40 Creatine Kinase Index 0.6 Creatinine Kinase MB (Mass) < 0.22 Troponin I < 0.012 Triglycerides Level 147 Cholesterol Level 227 H LDL Cholesterol, Calculated 157 HDL Cholesterol 41 Cholesterol/HDL Ratio 5.5 Medications Medication Current Medications Aspirin (Aspirin) 81 mg DAILY PO ; Start 06/09/18 at 09:00 Nitroglycerin (Nitroglycerin (Sl Tab) 0.4 Mg) 1 tab Q5M PRN SL CHEST PAIN; Start 06/07/18 at 16:00 IV Flush (NS 3 ml) 3 ml PER PROTOCOL IV ; Start 06/07/18 at 16:00 Ondansetron HCl (Zofran Inj) 4 mg Q6H PRN IV NAUSEA/VOMITING; Start 06/07/18 at 16:00 Acetaminophen (Tylenol Tab) 650 mg Q6H PRN PO .PAIN 1-3 OR TEMP Last administered on 06/08/18at 06:53; Admin Dose 650 MG; Start 06/07/18 at 16:00 Acetaminophen/ Hydrocodone Bitart ([place] (5/325)) 1 tab Q6H PRN PO .MOD PAIN 4- 6; Start 06/07/18 at 16:00 Morphine Sulfate (morphine) 2 mg Q4H PRN IV .SEVERE PAIN 7-10; Start 06/07/18 at 16:00 Docusate Sodium (Colace) 100 mg Q12H PRN PO .CONSTIPATION; Start 06/07/18 at 16:00 Zolpidem Tartrate (Ambien) 5 mg QHS PRN PO .INSOMNIA; Start 06/07/18 at 16:00 Enoxaparin Sodium (Lovenox) 40 mg DAILY SC Last administered on 06/08/18at 09:13; Admin Dose 40 MG; Start 06/08/18 at 09:00 Carvedilol (Coreg) 3.125 mg BID PO Last administered on 06/08/18at 09:03; Admin Dose 3.125 MG; Start 06/07/18 at 21:00 KEKE MASON Jun 08, 2018 13:43
[2018-06-08] MEDS ORDERED: REGADENOSON 0.4 MG/5 ML SYG ONE (14:15)
--- NOTE | 2018-06-08 15:09 | RADRPT ---
Echocardiogram Report Patient Name: DEANNA OLEAPatient ID: [id number] : 1975 (42y 11m)Study Date: 06/08/2018 9:40:03 AM Gender: FAccession #: [id number] Tech: [facility] [place] Location: Ref.Physician: TANMAY COHEN Height(Cm): BSA: Weight(Kg): 77.6 Quality: GoodAccount #: Procedures: Echocardiographic Report: Transthoracic echocardiogram with complete 2D, M-Mode, and doppler examination. Indications: Chest Pain, and SVT. Measurements: 2D/M Mode Doppler Measurement Value Normal Range Measurement Value Normal Range LVIDd 2D 4.6 [ 3.8 - 5.2 ] cm AV Peak Silas 1.2 [ 100.0 - 170.0 ] cm/se c LVIDs 2D 2.9 [ 2.2 - 3.5 ] cm AV Peak PG 5.0 [ 2.0 - 9.0 ] mmHg LVPWd 2D 0.8 [ 0.6 - 0.9 ] cm LVOT Peak Silas 0.9 [ 70.0 - 110.0 ] cm/sec IVSd 2D 0.8 [ 0.6 - 0.9 ] cm LVOT Peak PG 3.0 [ 2.0 - 6.0 ] mmHg EDV 2D 98.3 [ 46.0 - 106.0 ] ml MV E Peak Silas 0.6 [ 60.0 - 130.0 ] cm/sec ESV 2D 31.7 [ 14.0 - 42.0 ] ml MV A Peak Silas 0.5 [ 100.0 - 120.0 ] cm/se c EF 2D 67.8 [ 54.0 - 74.0 ] percent MV E/A 1.2 [ 0.8 - 1.5 ] ratio LA Dimen 2D 3.6 [ 2.7 - 3.8 ] cm MV PHT 73.0 [ 20.0 - 100.0 ] msec MV Decel Time 251 [ 104 - 258 ] msec MV Decel [place] 3 Lat E` Silas 0.1 [ 10.0 - 15.0 ] cm/sec Lateral E/E` 5.7 [ 1.0 - 2.0 ] ratio Med E` Silas 0.1 cm/sec MV E/A 1.2 [ 0.8 - 1.5 ] ratio MVA PHT 3.0 [ 2.0 - 4.0 ] cm2 TR Peak Silas 2.0 [ 100.0 - 280.0 ] cm/se c TR Peak PG 16.0 mmHg PV Peak Silas 0.9 [ 40.0 - 80.0 ] cm/sec PV Peak PG 3.0 mmHg RVSP 19.0 [ 10.0 - 36.0 ] mmHg RA Pressure 3.0 mmHg Findings: Left Ventricle: Normal left ventricular systolic function. Normal left ventricular cavity size. Normal left ventricular wall thickness. Ejection fraction is visually estimated at 60 %. Tissue Doppler/Mitral Doppler indices are within normal limits. Right Ventricle: Normal right ventricular size. Normal right ventricular systolic function. Left Atrium: The left atrium is normal in size. Right Atrium: The right atrium is normal in size. Atrial Septum: Normal atrial septum. Mitral Valve: Normal appearance of the mitral valve. Trace mitral regurgitation. Aortic Valve: Normal appearance of the aortic valve. No significant aortic stenosis or insufficiency. Tricuspid Valve: Normal appearance and function of the tricuspid valve with trace physiologic regurgitation. Estimated peak PA systolic pressure 19 mmHg. Pulmonic Valve: Normal pulmonic valve appearance. No evidence of pulmonic regurgitation. Pericardium: Normal pericardium with no significant pericardial effusion. Aorta: Normal aortic root. IVC: Normal size and normal respiratory collapse consistent with normal right atrial pressure. Pulmonary Artery: Normal pulmonary artery size. Conclusions: Normal left ventricular systolic function. Normal left ventricular cavity size. Normal left ventricular wall thickness. Ejection fraction is visually estimated at 60 %. Tissue Doppler/Mitral Doppler indices are within normal limits. Normal appearance of the mitral valve. Trace mitral regurgitation. Normal appearance of the aortic valve. No significant aortic stenosis or insufficiency. Normal appearance and function of the tricuspid valve with trace physiologic regurgitation. Estimated peak PA systolic pressure 19 mmHg. g. Electronically Signed By: Tanmay Cohen 2018-06-08 15:08:07 PDT
[2018-06-08] MEDS ORDERED: CARV3.1260 PO (18:21)
--- NOTE | 2018-06-08 18:23 | PDOCDIS ---
Discharge Instructions CONDITION [id number] Patient Condition: [id number] Good HOME CARE INSTRUCTIONS: [id number] Diet Instructions: [id number] Regular ACTIVITY: [id number] Activity Restrictions: [id number] No Restrictions FOLLOW UP/APPOINTMENTS Follow-up Plan FOLLOW UP WITH YOUR PCP IN 1-2 WEEKS KEKE MASON Jun 08, 2018 18:23
[2018-06-09] MEDS ORDERED: ASPIRIN 81 MG TAB PO SCH (09:00)
== END 2018-06-08 18:57 | disposition home or self-care (01) ==
LOC: E/R 10:06 → MS3 13:48 → 6WM 20:26
PROVIDERS: ADMIT Internal Medicine; ATTEND Internal Medicine
DX: R07.89 Other chest pain (principal); I47.1 Supraventricular tachycardia; E66.9 Obesity, unspecified; Z68.33 Body mass index [BMI] 33.0-33.9, adult
CPT/HCPCS: 71250; 78452; 80048; 80053; 80061; 81001; 81025; 82550; 82553; 83036; 83735; 83880; 84100; 84484; 85025; 85610; 85730; 93005; 93017; 93306; 99217; 99285; A9500; A9505; G0378; J1650; J2785; J7030; Q9967

== ENCOUNTER 2018-09-09 07:06 | Emergency (ER) | payer OTHER ==
[~2018-09-09] VITALS: Ht 152.4 cm; Wt 80.6 kg
[~2018-09-09 07:06] MED LIST: CARV3.1260 PO
[2018-09-09 07:08] VITALS: Ht 152.4 cm; Wt 80.6 kg
--- NOTE | 2018-09-09 07:47 | ERD ---
ER Documentation Chief Complaint Chief Complaint chest pain radiating to back, unprovoked, hx:SVT HPI 43-year-old female presents with chest pain that started yesterday described as sharp radiating to her lower back. She has been evaluated from a cardiac standpoint prior with a nuclear stress test, which did not show any ischemic abnormalities. She has not had any infectious symptoms. ROS All systems reviewed and are negative except as per history of present illness. Medications Home Meds Active Scripts Ibuprofen* (Motrin*) 800 Mg Tab, 800 MG PO Q6, #30 TAB Prov:GERRI SAM PA-C 09/09/18 Carvedilol* (Carvedilol*) 3.125 Mg Tablet, 3.125 MG PO BID, #60 TAB Prov:KEKE MASON 06/08/18 Allergies Allergies: Coded Allergies: Sulfa (Sulfonamide Antibiotics) (Verified Allergy, Unknown, 06/07/18) iodine (Unverified Allergy, Unknown, 06/07/18) PMhx/Soc History of Surgery: Yes (appendectomy) Anesthesia Reaction: No Hx Neurological Disorder: No Hx Respiratory Disorders: No Hx Cardiac Disorders: Yes (svt) Hx Psychiatric Problems: No Hx Miscellaneous Medical Probl: No Hx Alcohol Use: No Hx Substance Use: No Hx Tobacco Use: No Smoking Status: Never smoker Physical Exam Vitals Vital Signs Date Temp Pulse Resp B/P (MAP) Pulse Ox O2 O2 Flow FiO2 Time Delivery Rate 09/09/18 98.5 115 18 127/60 99 07:08 (82) Physical Exam Const: No acute distress Head: Atraumatic Eyes: Normal Conjunctiva ENT: Normal External Ears, Nose and Mouth. Neck: Full range of motion. No meningismus. Resp: Clear to auscultation bilaterally Cardio: Regular rate and rhythm, no murmurs, no JVD, no friction rub Abd: Soft, non tender, non distended. Normal bowel sounds Skin: No petechiae or rashes Back: No midline or flank tenderness Ext: No cyanosis, or edema Neur: Awake and alert Psych: Normal Mood and Affect Result Diagram: 09/09/18 0751 09/09/18 0751 Results 24 hrs Laboratory Tests Test 09/09/18 07:51 White Blood Count 7.8 10^3/ul Red Blood Count 4.23 10^6/ul Hemoglobin 12.7 g/dl Hematocrit 37.6 % Mean Corpuscular Volume 88.9 fl Mean Corpuscular Hemoglobin 30.0 pg Mean Corpuscular Hemoglobin Concent 33.8 g/dl Red Cell Distribution Width 12.8 % Platelet Count 318 10^3/UL Mean Platelet Volume 9.8 fl Immature Granulocytes % 0.400 % Neutrophils % 65.3 % Lymphocytes % 25.0 % Monocytes % 7.2 % Eosinophils % 1.7 % Basophils % 0.4 % Nucleated Red Blood Cells % 0.0 /100WBC Immature Granulocytes # 0.030 10^3/ul Neutrophils # 5.1 10^3/ul Lymphocytes # 2.0 10^3/ul Monocytes # 0.6 10^3/ul Eosinophils # 0.1 10^3/ul Basophils # 0.0 10^3/ul Nucleated Red Blood Cells # 0.0 10^3/ul D-Dimer 252.00 ng/ml D-Dimer Comment Sodium Level 143 mmol/L Potassium Level 4.3 mmol/L Chloride Level 109 mmol/L Carbon Dioxide Level 22 mmol/L Anion Gap 12 Blood Urea Nitrogen 12 mg/dl Creatinine 0.59 mg/dl Est Glomerular Filtrat Rate mL/min > 60 mL/min Glucose Level 112 mg/dl Calcium Level 9.2 mg/dl Total Bilirubin 0.3 mg/dl Direct Bilirubin 0.00 mg/dl Indirect Bilirubin 0.3 mg/dl Aspartate Amino Transf (AST/SGOT) 17 IU/L Alanine Aminotransferase (ALT/SGPT) 15 IU/L Alkaline Phosphatase 55 IU/L Troponin I < 0.012 ng/ml Total Protein 7.8 g/dl Albumin 4.3 g/dl Globulin 3.50 g/dl Albumin/Globulin Ratio 1.22 Current Medications Medications Dose Sig/Dontae Start Time Status Last (Trade) Ordered Route PRN Stop Time Admin Dose Reason Admin Ibuprofen 600 mg ONCE ONCE 09/09/18 DC 09/09/18 (Motrin) PO 09:00 09/09/18 08:54 09:01 Procedures/MDM This is a 43-year-old female presents for relation of chest pain. Currently she is pain-free, she has had prior cardiac work-up, is have a low suspicion for ACS, she will be assessed here with a troponin, additional consideration of pericarditis. She has a history of prior SVT, currently her heart rate is stable, additionally as she is not PE RC negative, will order d-dimer. EKG: Rate/Rhythm: Normal Sinus Rhythm QRS, ST, T-waves: No changes consistent w/ acute ischemia Impression: No evidence of ischemia or arrhythmia 9:33 AM: Patient feels better, troponin negative, based on heart score, patient is low risk for acute coronary syndrome, and as noted above she has had a prior stress test. 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 Departure Diagnosis: Primary Impression: Chest pain Chest pain type: unspecified Qualified Codes: R07.9 - Chest pain, unspecified Condition: Stable TOAN MOTA MD Sep 09, 2018 07:47
[2018-09-09] MEDS ORDERED: IBUPROFEN 600 MG TAB PO ONE (09:00)
[2018-09-09] MEDS ORDERED: IBUP800T48 PO (09:24)
[2018-09-09 09:48] VITALS: BP 116/76; PULSE 74; RESP 18
== END 2018-09-09 09:49 | disposition home or self-care (01) ==
LOC: E/R 07:06
DX: R07.9 Chest pain, unspecified (principal)
CPT/HCPCS: 36415; 71045; 80053; 84484; 85025; 85378; 93005